=== PATIENT | female | born 1960 | race Caucasian/White ===

== ENCOUNTER 2017-04-03 08:15 | Emergency (ER) | payer BC ==
--- NOTE | 2017-04-03 08:31 | Emergency Department Record ---
History of Present Illness - General Chief complaint: Vaginal bleeding Stated complaint: VAGINAL BLEEDING Time Seen by Provider: 04/03/17 08:27 Source: Patient Mode of Arrival: Ambulatory Limitations: No limitations - History of Present Illness Initial comments: 56 yo female presents with a concern about vaginal bleeding. She noted blood after intercourse. There was bleeding in the bed sheets last night and slight bleeding this morning. No abdominal pain. No discharge. She reports infrequent intercourse since her 5 years ago. No other recent illness. She has had a complete hysterectomy in the past. Her current partner is her first sexual partner since her . PCP Julia. No history of blood thinner use. MD Complaint: Vaginal bleeding -: Hour(s) Radiation: Non-radiating Severity: Mild Quality: Aching Consistency: Constant Improves with: None Worsens with: None Associated Symptoms: Denies other symptoms - Related Data Previous Rx's Medication Instructions Recorded Cephalexin [Keflex] 500 mg PO TID #21 cap 04/03/17 Allergies Allergy/AdvReac Type Severity Reaction Status Date / Time No Known Drug Allergies Allergy Verified 04/03/17 08:20 Review of Systems Constitutional: Denies: Chills, Fever, Malaise, Weakness Eyes: Denies: Eye discharge ENT: Denies: Congestion, Throat pain Respiratory: Denies: Cough, Dyspnea, Hemoptysis, Stridor, Wheezes Cardiovascular: Denies: Chest pain, Syncope Endocrine: Denies: Fatigue Gastrointestinal: Denies: Diarrhea, Hematemesis, Hematochezia, Nausea, Vomiting Genitourinary: Reports: As per HPI, Abnormal menses. Denies: Dysuria, Urgency Musculoskeletal: Denies: Arthralgia, Back pain, Neck pain Skin: Denies: Bruising, Change in color, Lesions, Pruritus, Rash Neurological: Denies: Headache, Numbness, Weakness Psychiatric: Denies: Anxiety Hematological/Lymphatic: Denies: Blood Clots, Easy bleeding, Easy bruising, Swollen glands Past Medical History - SOCIAL HISTORY Smoking Status: Never smoker - RESPIRATORY Hx Respiratory Disorders: Yes Hx Asthma: Yes (sports induced) - CARDIOVASCULAR Hx Cardio Disorders: No - NEURO Hx Neuro Disorders: Yes Hx Headaches: Yes (chronic headaches) - GI Hx Reflux: Yes - Hx Genitourinary Disorders: No - ENDOCRINE Hx Endocrine Disorders: No - MUSCULOSKELETAL Hx Musculoskeletal Disorders: No - PSYCH Hx Psych Problems: Yes Hx Anxiety: Yes Hx Depression: Yes - HEMATOLOGY/ONCOLOGY Hx Hematology/Oncology Disorders: No Physical Exam - General General Appearance: Alert, Oriented x3, Cooperative, No acute distress Limitations: No limitations - Head Head exam: Normal inspection - Eye Eye exam: Normal appearance, PERRL. negative: Conjunctival injection, Periorbital swelling, Scleral icterus - ENT ENT exam: Normal exam, Mucous membranes moist Ear exam: Normal external inspection Nasal Exam: Normal inspection Mouth exam: Normal external inspection Throat exam: Normal inspection - Neck Neck exam: Normal inspection, Full ROM. negative: Lymphadenopathy, Tenderness - Respiratory Respiratory exam: Normal lung sounds bilaterally. negative: Respiratory distress - Cardiovascular Cardiovascular Exam: Regular rate, Normal rhythm, Normal heart sounds - GI/Abdominal GI/Abdominal exam: Soft. negative: Guarding, Rebound, Tenderness - exam: Normal external exam, Vaginal bleeding, Other (Very mild bleeding with some mild dark clotted blood deep in the vaginal vault, the deepest area of the vaginal vault appears superfically torn and abraded. No visible intestine. Some oozing of superficial blood that is mild. ). negative: Abnormal external exam, Adnexal mass (L), Adnexal mass (R), Adnexal tenderness (L), Adnexal tenderness (R), Normal speculum exam, Vaginal discharge, Vaginal erythema - Extremities Extremities exam: Normal inspection, Full ROM, Normal capillary refill. negative: Tenderness - Back Back exam: Reports: Normal inspection, Full ROM. Denies: CVA tenderness (R), CVA tenderness (L), Muscle spasm, Rash noted, Tenderness - Neurological Neurological exam: Alert, Normal gait, Oriented X3 - Psychiatric Psychiatric exam: Normal affect, Normal mood - Skin Skin exam: Dry, Intact, Normal color, Warm Course - Reevaluation(s) Reevaluation #1: No acute changes on the CBC or CMP PT and PT are normal 04/03/17 09:17 04/03/17 09:20 Room air Pulse OX was 97% on recheck 04/03/17 10:02 UA consistent for possible UTI CT negative for acute [employer] ARCHITECT DEVELOPER changes, Bladder wall thickening noted may represent acute cystitis Keflex prescribed Referral made to [employer]ATE[employer] ARCHITECT DEVELOPER for the vaginal bleeding after intercourse. Medical Decision Making - Lab Data Result diagrams: 04/03/17 08:50 04/03/17 08:50 Disposition Disposition: Discharge Clinical Impression: Vaginal bleeding, UTI (urinary tract infection) Disposition: Home, Self-Care Condition: (2) Stable Instructions: Pelvic Pain in Women (ED), Urinary Tract Infection in Women (ED) Additional Instructions: Follow up with your doctor for a recheck or [employer] ARCHIT[employer] DEVELOPER referral if the bleeding continues Return if you have fever, pain, vaginal discharge or any new concerns. Prescriptions: Cephalexin [Keflex] 500 mg PO TID #21 cap Referrals: TOM CROWLEY [DOCTOR OF OSTEOPATH] - [facility] [Provider Group] Forms: Patient Portal Access Time of Disposition: 10:00 Quality - Quality Measures Quality Measures: N/A - Blood Pressure Screening Does Patient Have Any of the Following: No Blood Pressure Classification: Hypertensive Reading Systolic Measurement: 168 Diastolic Measurement: 92 Screening for High Blood Pressure: < Pre-Hypertensive BP, F/U Documented > [ [id number]] Pre-Hypertensive Follow-up Interventions: Referral to alternative/primary care provider.
[2017-04-03 08:58] LABS: BASO % 0.2 % (0-6); EOS % 1.1 % (0-6); GRAN % 74.6 % (47-80); HEMATOCRIT 41.7 % (35.0-47.0); MEAN CELL VOLUME 92.5 fl (81-97); MEAN CORPUSCULAR HGB CONC 33.6 g/dl (32-36); MEAN PLATELET VOLUME 10.4 fl (7.4-10.4); MONO % 6.1 % (0-9); PLATELET COUNT 253 K/uL (130-400); RED BLOOD COUNT 4.51 M/uL (3.80-5.40); RED CELL DISTRIBUTION WIDTH 12.5 % (11.5-14.5); WHITE BLOOD COUNT W/O DIFF 9.2 K/uL (4.2-12.2)
[2017-04-03 09:10] LABS: BLOOD UREA NITROGEN 14 mg/dL (6-20); CREATININE 0.7 mg/dL (0.5-0.9); EST GLOMERULAR FILTRATION RATE > 60 mL/min
[2017-04-03 09:12] LABS: INR 0.94; PARTIAL THROMBOPLASTIN TIME 26.4 SECONDS (24.5-39.1); PROTHROMBIN TIME (PATIENT) 10.2 SECONDS (9.5-12.1)
[2017-04-03 09:13] LABS: GLUCOSE,RANDOM 107 mg/dL (74-109)
[2017-04-03 09:55] LABS: URINE APPEARANCE BLOODY; URINE BILIRUBIN NEGATIVE (NEGATIVE); URINE BLOOD LARGE (NEGATIVE); URINE COLOR YELLOW; URINE GLUCOSE (UA) NEGATIVE (NEGATIVE); URINE KETONE NEGATIVE (NEGATIVE); URINE LEUKOCYTE ESTERASE MODERATE (NEGATIVE); URINE NITRITE NEGATIVE (NEGATIVE); URINE PROTEIN TRACE (NEGATIVE); URINE UROBILINOGEN 0.2 E.U./dL (0.20 - 1.00)
[2017-04-03 09:56] LABS: URINE BACTERIA FEW; URINE EPITHELIAL CELLS NONE SEEN (FEW)
[2017-04-03] MEDS ORDERED: CEPHALEXIN 500 MG CAPSULE PO STA (10:02)
--- NOTE | 2017-04-04 07:31 | CT SCAN REPORT ---
EXAM: CT OF THE PELVIS WITHOUT CONTRAST HISTORY: SEVERE PAIN. TECHNIQUE: Sequential axial images were obtained from the iliac crest through the proximal femora without intravenous or oral contrast administration. FINDINGS: The visualized bowel appears normal. The uterus is surgically absent. There is no free air to suggest injury. There is wall thickening of the urinary bladder with perivesicular inflammatory change. Findings are suspicious for cystitis. There are fat containing inguinal hernias. The osseous structures are normal. IMPRESSION: 1. THE UTERUS IS SURGICALLY ABSENT. NO EVIDENCE OF PERFORATION. 2. MILD WALL THICKENING OF THE URINARY BLADDER WITH PERIVESICULAR FAT STRANDING. FINDINGS ARE SUSPICIOUS FOR CYSTITIS. 3. FAT CONTAINING INGUINAL HERNIAS. JOB NUMBER: [id number] [facility]
[2017-04-04 14:41] LABS: GC SPECIMEN TYPE Vaginal
== END 2017-04-03 10:15 | disposition home or self-care (01) ==
LOC: ER 08:15
DX: N39.0 Urinary tract infection, site not specified (principal); N93.9 Abnormal uterine and vaginal bleeding, unspecified; R10.2 Pelvic and perineal pain
CPT/HCPCS: 99284 ×2; 85025; 85730; 85610; 80048; 81001; 72192; Q0111; 87210